=== PATIENT | male | born 2000 | race Two or more races ===

== ENCOUNTER → 2021-09-14 | Outpatient (CLI) | payer BC ==
[2021-09-16 02:13] LABS: CHLAMYDIA TRACHOMATIS, NAA Positive (Negative)
[2021-09-16 09:08] LABS: HIV AB/P24 AG SCREEN Non Reactive (Non Reactive)
== END | disposition home or self-care (01) ==
LOC: LAB SHORT 10:10
PROVIDERS: Physician Assistant
DX: R30.9 Painful micturition, unspecified (principal)
CPT/HCPCS: 86592; 87389; 87491; 87591